=== PATIENT | male | born 1975 | race Caucasian/White ===

== ENCOUNTER 2017-03-11 06:01 | Emergency (ER) | payer MEDICAID ==
[~2017-03-11] VITALS: Ht 190.5 cm; Wt 107.0 kg
[2017-03-11] MEDS ORDERED: CefTRIAXone 1 GM/DEXTROSE 50 ML IV ONE (07:00)
[2017-03-11] MEDS ORDERED: DEXAMETHASONE SOD PHOS 4 MG/ML 5 ML VIAL IVP ONE (07:00)
[2017-03-11] MEDS ORDERED: KETOROLAC TROMETHAMINE 30 MG/ML VIAL IVP ONE (07:00)
[2017-03-11 07:25] VITALS: BP 127/82
== END 2017-03-11 07:34 | disposition home or self-care (01) ==
LOC: EMS 06:02
DX: J03.90 Acute tonsillitis, unspecified (principal); J02.9 Acute pharyngitis, unspecified
CPT/HCPCS: 96365; 96375; 99284; J0696; J1100; J1885

== ENCOUNTER 2018-06-26 00:35 | Emergency (ER) | payer MEDICAID ==
[~2018-06-26] VITALS: Ht 190.5 cm; Wt 107.0 kg
[2018-06-26] MEDS: DEXAMETHASONE SOD PHOS 4 MG/ML 5 ML VIAL IVP ONE (01:12)
[2018-06-26] MEDS ORDERED: 0.9% SODIUM CHLORIDE 5 ML NEB SOLUTION NEB ONE ×2 (01:14→03:25)
[2018-06-26] MEDS: RACEPINEPHRINE HCL 2.25% 0.5 ML NEB SOLUTION NEB ONE ×2 (01:18→03:25)
[2018-06-26 01:24] LABS: BASOPHILS % (AUTO) 0.6 % (0.0-2.0); EOSINOPHILS % (AUTO) 1.9 % (1.0-6.0); HEMATOCRIT 47.8 % (41-53); HEMOGLOBIN 16.3 g/dL (13.5-17.5); LYMPHOCYTES # (AUTO) 2.9 K/uL (1.0-4.8); LYMPHOCYTES % (AUTO) 27.9 % (22.0-44.0); MEAN CORPUSCULAR HEMOGLOBIN 31.9 pg (26.0-34.0); MEAN CORPUSCULAR VOLUME 94 fL (80-100); MONOCYTES # (AUTO) 0.7 K/uL (0.1-1.0); MONOCYTES % (AUTO) 6.7 % (2.0-9.0); NEUTROPHILS # (AUTO) 6.6 K/uL (1.8-7.7); NEUTROPHILS % (AUTO) 62.9 % (40.0-70.0); PLATELET COUNT (AUTO) 281 K/uL (150-450); RED CELL DISTRIBUTION WIDTH 13.7 % (11.5-14.5)
[2018-06-26] MEDS ORDERED: SODIUM CHLORIDE 0.9% 100 ML ONE (01:27)
[2018-06-26] MEDS ORDERED: IOVERSOL 350 MG/ML 100 ML VIAL ONE (01:27)
[2018-06-26 01:31] LABS: ANION GAP 6 mmol/L (8-16); CALCIUM, TOTAL 8.4 mg/dL (8.8-10.5); CARBON DIOXIDE 31 mmol/L (22-29); CHLORIDE 104 mmol/L (98-107); CREATININE 0.74 mg/dL (0.60-1.30); GLOMERULAR FILTR. RATE CALC > 60 mL/min (>60); GLUCOSE,RANDOM 116 mg/dL (70-110); POTASSIUM 3.3 mmol/L (3.5-5.1); SODIUM SERUM 141 mmol/L (136-145); UREA NITROGEN, BLOOD 18 mg/dL (7-18)
[2018-06-26 01:36] LABS: ALANINE AMINOTRANSFERASE 42 U/L (12-78); ALBUMIN 3.5 g/dL (3.4-5.0); ALKALINE PHOSPHATASE 94 U/L (46-116); ASPARTATE AMINOTRANSFERASE 27 U/L (15-37); BILIRUBIN,TOTAL 0.3 mg/dL (0.1-1.0); TOTAL PROTEIN, SERUM 7.4 g/dL (6.4-8.2)
[2018-06-26] MEDS: CefTRIAXone SODIUM 1 GM in DEXTROSE 5%-WATER 10 ML IV ONE (01:38)
[2018-06-26 06:15] VITALS: BP 134/83
== END 2018-06-26 06:19 | disposition short-term general hospital (02) ==
LOC: EMS 00:38
DX: K12.2 Cellulitis and abscess of mouth (principal); J03.90 Acute tonsillitis, unspecified; R59.1 Generalized enlarged lymph nodes
CPT/HCPCS: 36415; 70491; 80053; 85025; 94640; 96374; 96375; 99285; J0696; J1100; J7050; J7060; Q9967

== ENCOUNTER 2019-07-09 08:01 | Emergency (ER) | payer MEDICAID ==
[~2019-07-09] VITALS: Ht 190.5 cm; Wt 106.8 kg
[2019-07-09 09:30] VITALS: BP 129/80
== END 2019-07-09 09:47 | disposition home or self-care (01) ==
LOC: EMS 08:02
DX: H60.92 Unspecified otitis externa, left ear (principal); H60.12 Cellulitis of left external ear